=== PATIENT | male | born 1995 | race Caucasian/White ===

== ENCOUNTER 2021-07-25 22:05 | Emergency (ER) | payer OTHER ==
[~2021-07-25] VITALS: Ht 177.8 cm; Wt 154.2 kg
[~2021-07-25 22:05] MED LIST: ALBU90OI; AMOX500 PO; CEPH250SUA PO; CETI10 PO; CODACEE120 PO; ESCI20 PO; FAMO20 PO; FEXPSEER PO; FLUT.05NI; MOMENI; PRED20 PO; TRAZ50 PO
[2021-07-25 23:51] LABS: Influenza A, PCR NEGATIVE (NEGATIVE); Influenza B, PCR NEGATIVE (NEGATIVE); SARS-Cov-2 (COVID-19) PCR, MMC NEGATIVE (NEGATIVE)
[2021-07-26 00:05] LABS: Resp Syncytial Virus, PCR POSITIVE (NEGATIVE)
[2021-07-26] MEDS ORDERED: MONT10T (00:34)
[2021-07-26] MEDS ORDERED: DOXE10 PO (00:34)
== END 2021-07-26 00:56 | disposition home or self-care (01) ==
LOC: ER 22:05
PROVIDERS: Physician Assistant
DX: J21.0 Acute bronchiolitis due to respiratory syncytial virus (principal); Z88.0 Allergy status to penicillin; Z88.8 Allergy status to other drugs, medicaments and biological substances; Z79.899 Other long term (current) drug therapy
CPT/HCPCS: 0241U; 99283